=== PATIENT | female | born 1970 | race Caucasian/White ===

== ENCOUNTER → 2020-10-30 14:16 | Outpatient (CLI) | payer BC, SELFPAY ==
[2020-10-30 15:29] LABS: Basophils # 0.1 K/mm3 (0-0.2); Basophils % 1.2 % (0.1-2.0); Eosinophils # 0.1 K/mm3 (0.0-0.4); Eosinophils % 1.5 % (0.1-12.0); Hematocrit 46.2 % (37.0-47.0); Hemoglobin 14.8 g/dL (12.2-16.2); Lymphocytes # 2.3 K/mm3 (0.7-4.5); Lymphocytes % 29.7 % (10-50); Mean Corpuscular HGB Conc 31.9 g/dL (31.8-35.4); Mean Corpuscular Hemoglobin 28.1 pg (27.0-31.2); Mean Corpuscular Volume 87.8 fl (81-99); Mean Platelet Volume 9.4 fl (7.4-10.4); Monocytes # 0.5 K/mm3 (0.1-1.0); Monocytes % 5.9 % (1.7-9.3); Neutrophils # 4.8 K/mm3 (1.8-7.8); Neutrophils % 61.8 % (37.0-80.0); Platelet Count 397 K/mm3 (142-424); Red Blood Count 5.26 M/mm3 (4.20-5.40); Red Cell Distribution Width 13.6 % (11.5-17.5); White Blood Count 7.7 K/mm3 (4.8-10.8)
[2020-10-30 15:41] LABS: Chloride 105 mmol/L (98-107); Potassium 4.1 mmoL/L (3.5-5.1); Sodium 140 mmol/L (136-145)
[2020-10-30 15:43] LABS: Blood Urea Nitrogen 12 mg/dl (7-17); Estimated Glomerular Filt Rate 89 ml/min (>60); GFR (African American) 107 ML/MIN (>60)
[2020-10-30 15:44] LABS: Alanine Aminotransferase 22 U/L (12-78); Albumin Level 3.5 g/dl (3.5-5.0); Albumin/Globulin Ratio 1.2 (1.1-1.8); Alkaline Phosphatase 98 U/L (38-126); Anion Gap 14.1 mEq/L (5-15); Aspartate Amino Transferase 28 U/L (14-36); Bilirubin,Total 0.3 mg/dl (0.2-1.3); Calcium 9.1 mg/dl (8.4-10.2); Carbon Dioxide 25 mmol/L (22.0-30.0); Cholesterol 206 mg/dl (140-200); Globulin 2.9 g/dL (1.3-3.2); Glucose 117 mg/dl (74-100); Total Protein,Serum 6.4 g/dl (6.3-8.2); Triglycerides 161 mg/dl (30-150); VLDL Cholesterol 32 mg/dL (0-40)
[2020-10-30 15:45] LABS: Chol/HDL Ratio 5.4 (1-3.5); HDL Cholesterol 38 mg/dl (40-60)
[2020-10-30 15:55] LABS: 25-OH Vitamin D, Total 26.5 ng/mL (30-100); Direct LDL Cholesterol 135.63 mg/dL (100-129)
[2020-10-30 15:56] LABS: Free T4 (Free Thyroxine) 1.13 ng/dl (0.78-2.19)
[2020-10-30 16:55] LABS: Hemoglobin A1C 6.4 % (4.0-6.0)
== END ==
PROVIDERS: Visit Provider Physician Assistant
DX: Z00.00 Encounter for general adult medical examination without abnormal findings (principal); E07.9 Disorder of thyroid, unspecified; R73.03 Prediabetes; E55.9 Vitamin D deficiency, unspecified
CPT/HCPCS: 80053; 80061; 82306; 83036; 84439; 84443; 85025

== ENCOUNTER → 2021-05-25 15:49 | Outpatient (CLI) | payer BC, SELFPAY ==
[2021-05-25 13:29] LABS: Basophils # 0.1 K/mm3 (0-0.2); Basophils % 0.7 % (0.1-2.0); Eosinophils # 0.1 K/mm3 (0.0-0.4); Eosinophils % 1.5 % (0.1-12.0); Hematocrit 49.4 % (37.0-47.0); Hemoglobin 15.5 g/dL (12.2-16.2); Lymphocytes # 2.6 K/mm3 (0.7-4.5); Lymphocytes % 27.9 % (10-50); Mean Corpuscular HGB Conc 31.4 g/dL (31.8-35.4); Mean Corpuscular Volume 89.3 fl (81-99); Mean Platelet Volume 8.7 fl (7.4-10.4); Monocytes # 0.6 K/mm3 (0.1-1.0); Monocytes % 6.1 % (1.7-9.3); Neutrophils % 63.8 % (37.0-80.0); Platelet Count 426 K/mm3 (142-424); Red Blood Count 5.53 M/mm3 (4.20-5.40); Red Cell Distribution Width 13.5 % (11.5-17.5); White Blood Count 9.4 K/mm3 (4.8-10.8)
[2021-05-25 13:37] LABS: Hemoglobin A1C 5.5 % (4.0-6.0)
[2021-05-25 13:43] LABS: Alanine Aminotransferase 28 U/L (12-78); Albumin Level 4.1 g/dl (3.5-5.0); Albumin/Globulin Ratio 1.5 (1.1-1.8); Alkaline Phosphatase 98 U/L (38-126); Aspartate Amino Transferase 30 U/L (14-36); Bilirubin,Total 0.5 mg/dl (0.2-1.3); Blood Urea Nitrogen 12 mg/dl (7-17); Calcium 9.4 mg/dl (8.4-10.2); Carbon Dioxide 26 mmol/L (22.0-30.0); Chloride 103 mmol/L (98-107); Chol/HDL Ratio 5.4 (1-3.5); Cholesterol 210 mg/dl (140-200); Estimated Glomerular Filt Rate 76 ml/min (>60); GFR (African American) 92 ML/MIN (>60); Globulin 2.7 g/dL (1.3-3.2); Glucose 102 mg/dl (74-100); HDL Cholesterol 39 mg/dl (40-60); Sodium 139 mmol/L (136-145); Total Protein,Serum 6.8 g/dl (6.3-8.2); Triglycerides 169 mg/dl (30-150); VLDL Cholesterol 34 mg/dL (0-40)
[2021-05-25 13:48] LABS: Phencyclidine Screen,Urine Negative ng/ml (<25)
[2021-05-25 13:49] LABS: Amphetamine/Metha Screen,Urine Positive ng/ml (<1000)
[2021-05-25 13:50] LABS: Barbiturates Screen,Urine Negative ng/ml (<200)
[2021-05-25 13:51] LABS: Benzodiazepines Screen,Urine Negative ng/ml (<200); Cannabinoid Screen,Urine Negative ng/ml (<50)
[2021-05-25 13:52] LABS: Cocaine Screen,Urine Negative ng/ml (<300); Microalbumin < 6.000 mg/L (0-16.7)
[2021-05-25 13:53] LABS: Methadone Screen,Urine Negative ng/ml (<300)
[2021-05-25 13:54] LABS: Direct LDL Cholesterol 128.47 mg/dL (100-129)
[2021-05-25 13:55] LABS: Opiate Screen,Urine Negative ng/ml (<300)
[2021-05-25 14:02] LABS: 25-OH Vitamin D, Total 54.2 ng/mL (30-100)
[2021-05-25 14:14] LABS: Thyroid Stimulating Hormone 0.62 uIU/mL (0.465-4.68)
== END ==
PROVIDERS: Visit Provider Physician Assistant
DX: F90.9 Attention-deficit hyperactivity disorder, unspecified type (principal); R73.9 Hyperglycemia, unspecified; E66.9 Obesity, unspecified; Z68.41 Body mass index [BMI] 40.0-44.9, adult
CPT/HCPCS: 80053; 80061; 80305; 82043; 82306; 83036; 84443; 85025

== ENCOUNTER → 2022-03-17 16:30 | Outpatient (CLI) | payer BC, SELFPAY ==
[2022-03-17 19:35] LABS: Alanine Aminotransferase 24 U/L (12-78); Albumin/Globulin Ratio 1.5 (1.1-1.8); Alkaline Phosphatase 81 U/L (38-126); Anion Gap 11.6 mEq/L (5-15); Aspartate Amino Transferase 27 U/L (14-36); Bilirubin,Total 0.4 mg/dl (0.2-1.3); Blood Urea Nitrogen 11 mg/dl (7-17); Calcium 9.3 mg/dl (8.4-10.2); Carbon Dioxide 27 mmol/L (22.0-30.0); Chloride 103 mmol/L (98-107); Chol/HDL Ratio 5.4 (1-3.5); Cholesterol 204 mg/dl (140-200); Estimated Glomerular Filt Rate 66 ml/min (>60); GFR (African American) 80 ML/MIN (>60); Globulin 2.7 g/dL (1.3-3.2); Glucose 87 mg/dl (74-100); HDL Cholesterol 38 mg/dl (40-60); Potassium 3.6 mmoL/L (3.5-5.1); Sodium 138 mmol/L (136-145); Total Protein,Serum 6.7 g/dl (6.3-8.2); Triglycerides 214 mg/dl (30-150); VLDL Cholesterol 43 mg/dL (0-40)
[2022-03-17 19:44] LABS: Basophils # 0.1 K/mm3 (0-0.2); Eosinophils # 0.1 K/mm3 (0.0-0.4); Eosinophils % 1.1 % (0.1-12.0); Hematocrit 44.3 % (37.0-47.0); Hemoglobin 14.6 g/dL (12.2-16.2); Lymphocytes # 3.3 K/mm3 (0.7-4.5); Lymphocytes % 33.1 % (10-50); Mean Corpuscular HGB Conc 32.9 g/dL (31.8-35.4); Mean Corpuscular Hemoglobin 27.8 pg (27.0-31.2); Mean Corpuscular Volume 84.6 fl (81-99); Mean Platelet Volume 8.3 fl (7.4-10.4); Monocytes # 0.6 K/mm3 (0.1-1.0); Monocytes % 6.2 % (1.7-9.3); Neutrophils # 5.9 K/mm3 (1.8-7.8); Neutrophils % 58.5 % (37.0-80.0); Platelet Count 370 K/mm3 (142-424); Red Blood Count 5.24 M/mm3 (4.20-5.40); Red Cell Distribution Width 13.5 % (11.5-17.5)
[2022-03-17 19:45] LABS: Direct LDL Cholesterol 120.84 mg/dL (100-129)
[2022-03-17 19:53] LABS: 25-OH Vitamin D, Total 56.9 ng/mL (30-100)
== END ==
PROVIDERS: PCP Physician Assistant; Visit Provider Physician Assistant
DX: E03.9 Hypothyroidism, unspecified (principal); E66.9 Obesity, unspecified; Z68.39 Body mass index [BMI] 39.0-39.9, adult
CPT/HCPCS: 80053; 80061; 82306; 84443; 85025

== ENCOUNTER → 2022-04-02 13:21 | Outpatient (CLI) | payer BC, SELFPAY ==
--- NOTE | 2022-04-02 13:21 | US_ITS ---
FINAL REPORT CLINICAL HISTORY: thyroid nodule FINDINGS: Limited sonographic images of the thyroid were obtained. The right lobe of the thyroid measures 4.1 x 1.6 x 1.2 cm. The left lobe of the thyroid is measures 3.0 x 0.68 x 0.84 cm. The isthmus measures 0.23 cm. There is an ovoid, hypoechoic nodule in the isthmus measuring 8 mm consistent with TI-RADS category 4. There is a hypoechoic nodule in the upper right thyroid lobe measuring 7 mm consistent with TI-RADS category 4. In addition, there is a 9 mm nodule in the mid right lobe consistent with TI-RADS category 3. IMPRESSION: Subcentimeter nodules consistent with TI-RADS category 4. No follow-up is required. Reviewed, Interpreted and Dictated by Carrington Walker MD Transcribed by Jaquelin Anthony Authenticated and [facility]
== END ==
PROVIDERS: PCP Physician Assistant; Visit Provider Physician Assistant
DX: E04.1 Nontoxic single thyroid nodule (principal)
CPT/HCPCS: 76536

== ENCOUNTER 2023-03-04 12:25 | Emergency (ER) | payer OTHER, SELFPAY ==
[2023-03-04 12:40] VITALS: BP 132/78; PULSE 81; RESP 19; TEMP 36.9; O2SAT 98; BMI 39.2
--- NOTE | 2023-03-04 12:45 | EXP.UTC ---
Discharge Plan Disposition Patient Disposition: Home, Self-Care Condition: Good Prescriptions Prescriptions: New cephalexin 500 mg capsule 500 mg PO QID Qty: 40 0RF mupirocin 2 % ointment 1 applic topical TID 7 Days Qty: 15 0RF No Action omega [id number] oil [Fish Oil] 60-90-500 mg capsule 1 cap PO DAILY alprazolam [Xanax] 0.5 mg tablet 0.5 mg PO BID PRN (Reason: anxiety) Qty: 30 0RF Probiotic 3 billion cell capsule 3,000 mmu cells PO DAILY Rx Instructions: administer with a meal multivitamin Tablet 1 tab PO DAILY ergocalciferol (vitamin D2) 1,250 mcg (50,000 unit) capsule See Rx Instructions .ROUTE .COMPLEX Qty: 14 3RF Dose Instruction: TAKE ONE CAPSULE BY MOUTH ONCE a WEEK Rx Instructions: TAKE ONE CAPSULE BY MOUTH ONCE a WEEK bupropion HCl 150 mg tablet sustained-release 12 hr See Rx Instructions .ROUTE .COMPLEX Qty: 30 6RF Dose Instruction: TAKE ONE TABLET BY MOUTH EVERY DAY Rx Instructions: TAKE ONE TABLET BY MOUTH EVERY DAY levothyroxine 100 mcg tablet See Rx Instructions .ROUTE .COMPLEX Qty: 90 3RF Dose Instruction: TAKE ONE TABLET BY MOUTH EVERY DAY Rx Instructions: TAKE ONE TABLET BY MOUTH EVERY DAY pantoprazole 40 mg tablet,delayed release (DR/EC) See Rx Instructions .ROUTE .COMPLEX Qty: 30 2RF Dose Instruction: TAKE ONE TABLET BY MOUTH EVERY DAY Rx Instructions: TAKE ONE TABLET BY MOUTH EVERY DAY liothyronine 5 mcg tablet See Rx Instructions .ROUTE .COMPLEX Qty: 180 0RF Dose Instruction: TAKE ONE TABLET BY MOUTH EVERY DAY IN THE MORNING with synthroid (LEVOTHYROXINE) AND TAKE ONE TABLET AT BEDTIME Rx Instructions: TAKE ONE TABLET BY MOUTH EVERY DAY IN THE MORNING with synthroid (LEVOTHYROXINE) AND TAKE ONE TABLET AT BEDTIME triamterene-hydrochlorothiazid 37.5-25 mg tablet 1 tab PO DAILY Qty: 90 3RF Ozempic 0.25 mg or 0.5 mg (2 mg/3 mL) pen injector See Rx Instructions .ROUTE .COMPLEX Qty: 3 3RF Dose Instruction: INJECT 0.5 MG SUBCUTANEOUSLY ONCE WEEKLY Rx Instructions: INJECT 0.5 MG SUBCUTANEOUSLY ONCE WEEKLY cetirizine 10 mg tablet See Rx Instructions .ROUTE .COMPLEX Qty: 30 11RF Dose Instruction: TAKE ONE TABLET BY MOUTH EVERY DAY Rx Instructions: TAKE ONE TABLET BY MOUTH EVERY DAY Rexulti 2 mg tablet See Rx Instructions .ROUTE .COMPLEX Qty: 90 11RF Dose Instruction: TAKE ONE TABLET BY MOUTH EVERY DAY Rx Instructions: TAKE ONE TABLET BY MOUTH EVERY DAY cholecalciferol (vitamin D3) 25 mcg (1,000 unit) capsule See Rx Instructions .ROUTE .COMPLEX Qty: 30 2RF Dose Instruction: TAKE ONE CAPSULE BY MOUTH EVERY DAY Rx Instructions: TAKE ONE CAPSULE BY MOUTH EVERY DAY dextroamphetamine-amphetamine 30 mg tablet 30 mg PO DAILY 30 Days Qty: 30 0RF aspirin 81 MG tablet,delayed release (DR/EC) 81 mg PO DAILY Referrals Follow up/Referrals: Mellissa Grimaldo PA [Primary Care Provider] - See instructions Activity Restrictions/Add. Instructions Additional Instructions/Restrictions: Keep the wound clean and dry.. Watch the wound for signs of infection, such as redness, swelling, drainage, fever. etc. Take tylenol or ibuprofen for pain. Follow up with your regular doctor. GO TO THE ER FOR ANY WORSENING SYMPTOMS OR CONCERNS. Clinical Impressions Clinical Impression: Injury of nail bed of right thumb Instructions Patient Instructions: Tetanus, Diphtheria, and Pertussis Vaccine, Cephalexin, DI for Nail Bed Injury Discharge ED Provider: J[facility]ior [facility]iz [facility] General Stated complaint: WC-foreign object under R thumb nail Time Seen by Provider: 03/04/23 12:45 History of Present Illness Provider Complaint: She states that 2 days ago she got a piece of a table top beneath her right thumb nail. She states that she thought she got all of the table top material out from under her nail, but she has started having redness around the site. Her tetanus immunization is also not up to date. Related Data Home Medications Medication Instructions Recorded Confirmed aspirin 81 mg tablet,delayed 81 mg PO DAILY HEART 10/02/18 12/20/22 release omega [id number]-[id number]-fish oil 60 mg-90 1 cap PO DAILY 11/17/21 12/20/22 mg-500 mg capsule (Fish Oil) lactobacillus combination no.4 3 3,000 mmu cells PO DAILY 07/12/22 12/20/22 billion cell capsule (Probiotic) multivitamin 1 tab PO DAILY 07/12/22 12/20/22 Previous Rx's Medication Instructions Recorded alprazolam 0.5 mg tablet (Xanax) 0.5 mg PO BID PRN anxiety #30 tabs 11/17/21 ergocalciferol (vitamin D2) 1,250 See Rx Instructions .Route 04/19/22 mcg (50,000 unit) capsule .COMPLEX #14 caps bupropion HCl 150 mg tablet,12 hr See Rx Instructions .Route 10/12/22 sustained-release .COMPLEX #30 tabs levothyroxine 100 mcg tablet See Rx Instructions .Route 11/24/22 .COMPLEX #90 tabs pantoprazole 40 mg tablet,delayed See Rx Instructions .Route 12/13/22 release .COMPLEX #30 tabs liothyronine 5 mcg tablet See Rx Instructions .Route 12/20/22 .COMPLEX #180 tabs triamterene 37.5 1 tab PO DAILY #90 tabs 12/30/22 mg-hydrochlorothiazide 25 mg tablet semaglutide 0.25 mg or 0.5 mg (2 See Rx Instructions .Route 01/04/23 mg/3 mL) subcutaneous pen injector .COMPLEX #3 mL (Ozempic) brexpiprazole 2 mg tablet (Rexulti) See Rx Instructions .Route 01/17/23 .COMPLEX #90 tabs cetirizine 10 mg tablet See Rx Instructions .Route 01/17/23 .COMPLEX #30 tabs cholecalciferol (vitamin D3) 25 See Rx Instructions .Route 02/15/23 mcg (1,000 unit) capsule .COMPLEX #30 caps cephalexin 500 mg capsule 500 mg PO QID #40 caps 03/04/23 dextroamphetamine-amphetamine 30 30 mg PO DAILY 30 days #30 tabs 03/04/23 mg tablet mupirocin 2 % topical ointment 1 applic topical TID 7 days #15 03/04/23 grams Allergies Allergy/AdvReac Type Severity Reaction Status Date / Time Sulfa (Sulfonamide Allergy Verified 12/20/22 15:41 Antibiotics) [facility] Disclaimer: The information contained in this section may have been updated after the patient was seen, as this information can be updated by other users. Medical History Allergic rhinitis Anxiety Attention deficit hyperactivity disorder (ADHD) Depression Gastroesophageal reflux disease Hypertension Hypothyroidism Prediabetes Family History Mother Diabetes Daughter Diabetes Grandmother Cancer Social History Smoking Status: Former smoker alcohol intake: current substance use type: denies use current occupational status: employed Travel in the last 8 weeks: None ROS Obtained: Yes All systems reviewed & no additional complaints except as documented Constitutional Constitutional: Denies chills and Denies fever(s) Eyes Eyes: Denies eye discharge ENT Ears, Nose, Mouth, and Throat: Denies dizziness, Denies otalgia and Denies sore throat Cardiovascular Cardiovascular: Denies chest pain Respiratory Respiratory: Denies shortness of breath, Denies chest congestion, Denies cough, Denies stridor and Denies wheezing Gastrointestinal Gastrointestingal: Denies nausea or vomiting Musculoskeletal Musculoskeletal: Reports system reviewed and no additional complaints, except as documented and Denies arthralgias Integumentary/Breasts Skin/Breast: Reports as per HPI Neurologic Neurologic: Denies dizziness and Denies paresthesias Allergic/Immunologic Allergic/Immunologic: Denies wheezing Physical Exam General General appearance: alert and in no apparent distress Head Head exam: atraumatic, normocephalic and normal inspection Eye Eye exam: Present normal appearance, PERRL and EOMI ENT ENT exam: Present normal exam, normal oropharynx, mucous membranes moist, TM's normal bilaterally and normal external ear exam Neck Neck exam: Present normal inspection, full ROM and trachea midline; Absent meningismus or lymphadenopathy Chest Chest inspection: Present normal inspection and symmetric chest wall rise; Absent tenderness Respiratory Respiratory exam: Present normal lung sounds bilaterally; Absent respiratory distress Cardiovascular Cardiovascular exam: Present regular rate and normal rhythm; Absent JVD Abdominal Exam Abdominal exam: Present soft and normal bowel sounds; Absent distention, tenderness or guarding Extremities Exam Extremities exam: Present normal inspection, full ROM and normal capillary refill; Absent calf tenderness Back Exam Back exam: Present normal inspection; Absent tenderness Neurological Exam Neurological exam: Present alert and oriented X3 Psychiatric Psychiatric exam: Present normal affect and normal mood Skin Skin exam: Present other (there is redness around the medial fold of her right thumb nail, no open wound, no evident foreign body noted. ) Lymphatic Lymphatic Findings: no adenopathy Medical Decision Making Medical Records Medical records reviewed: No I reviewed the patient's medical records. [place] Inquiry Pt receiving controlled substance: No
[2023-03-04] MEDS: TET/DIPHTH/PERT-ADULT 0.5ML SYRINGE 0.5 ML IM (13:00)
[2023-03-04 13:05] VITALS: BP 132/78; PULSE 81; RESP 19; TEMP 36.9; O2SAT 98
== END 2023-03-04 13:20 | disposition home or self-care (01) ==
PROVIDERS: Emergency Provider Nurse Practitioner Family; PCP Physician Assistant
DX: S69.91XA Unspecified injury of right wrist, hand and finger(s), initial encounter (principal); K21.9 Gastro-esophageal reflux disease without esophagitis; I10 Essential (primary) hypertension; E03.9 Hypothyroidism, unspecified; J30.9 Allergic rhinitis, unspecified; W45.8XXA Other foreign body or object entering through skin, initial encounter
CPT/HCPCS: 90471; 90715; 99204; 99212; G0463

== ENCOUNTER 2023-03-14 18:16 | Outpatient (CLI) | payer BC, SELFPAY ==
[2023-03-14 22:20] LABS: Amphetamine/Metha Screen,Urine Positive ng/ml (<1000)
[2023-03-14 22:21] LABS: Barbiturates Screen,Urine Negative ng/ml (<200)
[2023-03-14 22:22] LABS: Benzodiazepines Screen,Urine Negative ng/ml (<200); Cannabinoid Screen,Urine Negative ng/ml (<50)
[2023-03-14 22:26] LABS: Cocaine Screen,Urine Negative ng/ml (<300)
[2023-03-14 22:27] LABS: Methadone Screen,Urine Negative ng/ml (<300); Opiate Screen,Urine Negative ng/ml (<300)
[2023-03-14 22:32] LABS: Phencyclidine Screen,Urine Negative ng/ml (<25)
== END 2023-03-14 23:59 ==
LOC: LAB.DROPOF 18:17
PROVIDERS: PCP Physician Assistant; Visit Provider Physician Assistant
DX: F90.9 Attention-deficit hyperactivity disorder, unspecified type (principal); Z79.899 Other long term (current) drug therapy
CPT/HCPCS: 80307